=== PATIENT | female | born 1945 | race Hispanic/Latino ===

== ENCOUNTER 2018-07-25 08:19 | Emergency (ER) | payer MEDICARE ==
[~2018-07-25 08:19] MED LIST: ALEN70TA47 PO; AMLO1TAB14 PO; ATOR40TA71 PO; CARV12.511 PO; CHOL100053 PO; CLOP75TA32 PO; EZET10 PO; MULTIVITAMIN PO; OMEG300C3 PO; OMEP40CA37 PO; SOLI10TA PO; TRAM50TA4 PO; [UNRECOGNIZED DRUG - OTHER] PO
[2018-07-25] MEDS ORDERED: KETOROLAC TROMETHAMINE 60 MG/2 ML VIAL ONE (08:28)
[2018-07-25] MEDS ORDERED: CYCLOBENZAPRINE HCL 10 MG TABLET ONE (08:29)
[2018-07-25] MEDS ORDERED: MORPHINE SULFATE 8 MG/ML VIAL ONE (08:30)
[2018-07-25 09:32] LABS: APPEARANCE,URINE Cloudy (CLEAR); BILIRUBIN,URINE Negative (NEGATIVE); COLOR,URINE Yellow (YELLOW); GLUCOSE, URINE (UA) Negative (NEGATIVE); KETONES,URINE Negative (NEGATIVE); LEUKOCYTE ESTERASE ,URINE Trace (NEGATIVE); NITRATE,URINE Negative (NEGATIVE); OCCULT BLOOD,URINE Moderate (NEGATIVE); PROTEIN,URINE Negative (NEGATIVE); UROBILINOGEN,URINE 0.2 mg/dL (0.2-1.0)
[2018-07-25 10:24] LABS: BACTERIA,URINE Many /HPF (None Seen); RBC,URINE 0-1 /HPF (0-1); SQUAMOUS EPITHELIAL CELL,UR Rare /HPF (0-2); WBC,URINE 0-1 /HPF (0-1)
== END 2018-07-25 11:01 | disposition home or self-care (01) ==
LOC: EDH 08:19
DX: M54.5 Low back pain (principal); E78.5 Hyperlipidemia, unspecified; I10 Essential (primary) hypertension; G89.29 Other chronic pain
CPT/HCPCS: 72131; 81001; 96372 ×2; 99285; J1885; J2270

== ENCOUNTER → 2019-09-16 | Outpatient (CLI) | payer MEDICARE ==
[~2019-09-16] MED LIST changes: -ALEN70TA47 PO; -AMLO1TAB14 PO; +AMLO5TAB9 PO; -EZET10 PO; +EZET10TA13 PO; +LINA72CA PO; +NTP TP; +OMEP40CA13 PO; -OMEP40CA37 PO; +TELM80TA10 PO
== END | disposition home or self-care (01) ==
LOC: SHCH 09:44
PROVIDERS: ATTEND Internal Medicine Cardiovascular Disease
DX: I10 Essential (primary) hypertension (principal)
CPT/HCPCS: 93306

== ENCOUNTER → 2020-08-25 | Outpatient (CLI) | payer MEDICARE ==
[~2020-08-25] MED LIST changes: +AMLO-257 PO; -AMLO5TAB9 PO
== END | disposition home or self-care (01) ==
LOC: RAH 16:07
PROVIDERS: ATTEND Physical Medicine & Rehabilitation
DX: M47.819 Spondylosis without myelopathy or radiculopathy, site unspecified (principal); I70.0 Atherosclerosis of aorta; M85.80 Other specified disorders of bone density and structure, unspecified site
CPT/HCPCS: 72082

== ENCOUNTER → 2020-09-19 | Outpatient (CLI) | payer MEDICARE | END | disposition home or self-care (01) | LOC: RAH 12:35 | PROVIDERS: ATTEND Physical Medicine & Rehabilitation | DX: R27.9 Unspecified lack of coordination (principal) | CPT/HCPCS: 70551 ==

== ENCOUNTER → 2020-09-21 | Outpatient (CLI) | payer MEDICARE | END | disposition home or self-care (01) | LOC: RAH 13:11 | PROVIDERS: ATTEND Physical Medicine & Rehabilitation | DX: M48.061 Spinal stenosis, lumbar region without neurogenic claudication (principal); M51.36 Other intervertebral disc degeneration, lumbar region | CPT/HCPCS: 72131 ==

== ENCOUNTER → 2021-05-10 | Outpatient (CLI) | payer MEDICARE ==
[~2021-05-10] MED LIST changes: -OMEP40CA13 PO; +OMEP40CA21 PO
== END | disposition home or self-care (01) ==
LOC: RAH 12:57
PROVIDERS: ATTEND Physical Medicine & Rehabilitation
DX: M75.31 Calcific tendinitis of right shoulder (principal); M75.32 Calcific tendinitis of left shoulder
CPT/HCPCS: 73221

== ENCOUNTER → 2021-05-11 | Outpatient (CLI) | payer MEDICARE | END | disposition home or self-care (01) | LOC: RAH 13:02 | PROVIDERS: ATTEND Physical Medicine & Rehabilitation | DX: M75.102 Unspecified rotator cuff tear or rupture of left shoulder, not specified as traumatic (principal) | CPT/HCPCS: 73221 ==

== ENCOUNTER 2021-09-27 09:56 | Emergency (ER) | payer MEDICARE ==
[~2021-09-27] VITALS: Ht 154.9 cm; Wt 90.7 kg
[2021-09-27 10:46] LABS: BASOPHILS % (AUTO) 1.1 % (0.0-5.0); EOSINOPHILS % (AUTO) 12.3 % (0.0-8.0); HEMATOCRIT 39.5 % (36-48); LYMPHOCYTES % (AUTO) 33.1 % (21.0-51.0); MEAN CORPUSCULAR HEMOGLOBIN 32.1 pg (27.0-33.0); MEAN CORPUSCULAR HGB CONC 33.9 g/dL (32.0-36.0); MEAN CORPUSCULAR VOLUME 94.5 fL (79-99); MONOCYTES % (AUTO) 8.4 % (3.0-13.0); PLATELET COUNT (AUTO) 210 K/uL (130-400); RED BLOOD CELL COUNT(AUTO) 4.18 MIL/uL (4.00-5.50); RED CELL DISTRIBUTION WIDTH 12.8 % (11.0-15.5); WHITE BLOOD COUNT (AUTO) 7.4 K/uL (4.8-10.8)
[2021-09-27 10:47] LABS: APPEARANCE,URINE Cloudy (CLEAR); BILIRUBIN,URINE Negative (NEGATIVE); COLOR,URINE Yellow (YELLOW); GLUCOSE, URINE (UA) Negative (NEGATIVE); KETONES,URINE Negative (NEGATIVE); LEUKOCYTE ESTERASE ,URINE Small (NEGATIVE); NITRATE,URINE Negative (NEGATIVE); OCCULT BLOOD,URINE Moderate (NEGATIVE); PROTEIN,URINE Negative (NEGATIVE)
[2021-09-27 11:01] LABS: POTASSIUM 3.8 mmol/L (3.5-5.1)
[2021-09-27 11:12] LABS: ALBUMIN 3.9 g/dL (3.5-5.0); BILIRUBIN,TOTAL 0.8 mg/dL (0.2-1.0); TOTAL PROTEIN, SERUM 7.8 g/dL (6.0-8.3)
[2021-09-27] MEDS ORDERED: MECLIZINE HCL 25 MG TABLET PO ONE (11:30)
[2021-09-27] MEDS ORDERED: 0.9%NACL 1000ML 1,000 ML IV ONE (11:30)
[2021-09-27] MEDS ORDERED: KETOROLAC 15MG/ML VIAL (15MG/ML) IV ONE (11:30)
[2021-09-27 11:36] LABS: BACTERIA,URINE Many /HPF (None Seen); RBC,URINE 0-1 /HPF (0-1); SQUAMOUS EPITHELIAL CELL,UR Few /HPF (0-2)
[2021-09-27] MEDS ORDERED: METH4TAB3 PO (13:38)
[2021-09-27] MEDS ORDERED: MECL-226 PO (13:38)
[2021-09-27 14:02] VITALS: BP 125/64
== END 2021-09-27 14:04 | disposition home or self-care (01) ==
LOC: EDH 09:56
DX: M54.2 Cervicalgia (principal); R42 Dizziness and giddiness; R19.7 Diarrhea, unspecified; M19.90 Unspecified osteoarthritis, unspecified site; E78.00 Pure hypercholesterolemia, unspecified; I10 Essential (primary) hypertension; Z79.1 Long term (current) use of non-steroidal anti-inflammatories (NSAID); Z79.899 Other long term (current) drug therapy
CPT/HCPCS: 36415; 80053; 81001; 85025; 87077; 87088; 87186; 93005; 96361; 96374; 99284; J1885

== ENCOUNTER → 2022-09-12 | Outpatient (CLI) | payer MEDICARE ==
[~2022-09-12] MED LIST changes: +IOHEXOL 350 MG/ML 100ML INFUS..BTL IV ONE; +MECL-226 PO; +METH4TAB3 PO
== END | disposition home or self-care (01) ==
LOC: RAH 10:25
PROVIDERS: ATTEND Internal Medicine
DX: N28.1 Cyst of kidney, acquired (principal); R10.9 Unspecified abdominal pain; I25.10 Atherosclerotic heart disease of native coronary artery without angina pectoris
CPT/HCPCS: 74170; Q9967

== ENCOUNTER 2022-10-10 12:13 | Emergency (ER) | payer MEDICARE ==
[~2022-10-10 12:13] MED LIST changes: -IOHEXOL 350 MG/ML 100ML INFUS..BTL IV ONE
[2022-10-10 13:18] LABS: APPEARANCE,URINE CLOUDY (CLEAR); BILIRUBIN,URINE NEGATIVE (NEGATIVE); COLOR,URINE LIGHT-YELLOW (YELLOW); GLUCOSE, URINE (UA) NEGATIVE (NEGATIVE); KETONES,URINE NEGATIVE (NEGATIVE); LEUKOCYTE ESTERASE ,URINE NEGATIVE Leu/uL (NEGATIVE); NITRATE,URINE 2+ (NEGATIVE); OCCULT BLOOD,URINE SMALL (NEGATIVE); PROTEIN,URINE NEGATIVE (NEGATIVE); UROBILINOGEN,URINE 0.2 mg/dL (0.2-1.0)
[2022-10-10 13:27] LABS: BACTERIA,URINE RARE /HPF (None Seen); SQUAMOUS EPITHELIAL CELL,UR FEW /HPF (0-2)
[2022-10-10 14:40] VITALS: BP 165/74
[2022-10-10] MEDS ORDERED: TAMS-1 PO ×2 (15:29→16:10)
[2022-10-10] MEDS ORDERED: SULF1TAB42 PO ×2 (15:29→16:10)
== END 2022-10-10 15:30 | disposition home or self-care (01) ==
LOC: EDH 12:13
DX: N20.0 Calculus of kidney (principal); N39.0 Urinary tract infection, site not specified; Z79.01 Long term (current) use of anticoagulants; Z79.899 Other long term (current) drug therapy
CPT/HCPCS: 74176; 81001; 87077; 87088; 87186

== ENCOUNTER → 2023-04-24 | Outpatient (CLI) | payer MEDICARE ==
[~2023-04-24] MED LIST changes: +GADOTERATE MEGLUMINE 10 MMOL/20 ML VIAL IV ONE; +SULF1TAB42 PO; +TAMS-1 PO
== END | disposition home or self-care (01) ==
LOC: RAH 14:32
PROVIDERS: ATTEND Internal Medicine
DX: M47.814 Spondylosis without myelopathy or radiculopathy, thoracic region (principal); M54.6 Pain in thoracic spine
CPT/HCPCS: 72146; A9575

== ENCOUNTER → 2023-06-20 | Outpatient (CLI) | payer MEDICARE ==
[~2023-06-20] MED LIST changes: -GADOTERATE MEGLUMINE 10 MMOL/20 ML VIAL IV ONE
== END | disposition home or self-care (01) ==
LOC: RAH 15:13
PROVIDERS: ATTEND Internal Medicine
DX: M47.812 Spondylosis without myelopathy or radiculopathy, cervical region (principal); M47.817 Spondylosis without myelopathy or radiculopathy, lumbosacral region; M48.02 Spinal stenosis, cervical region; M43.17 Spondylolisthesis, lumbosacral region; M48.05 Spinal stenosis, thoracolumbar region; M48.08 Spinal stenosis, sacral and sacrococcygeal region; M54.2 Cervicalgia
CPT/HCPCS: 72114; 72141

== ENCOUNTER → 2023-06-27 | Outpatient (CLI) | payer MEDICARE ==
[~2023-06-27] MED LIST changes: -EZET10TA13 PO; +EZET10TA81 PO
== END | disposition home or self-care (01) ==
LOC: RAH 12:53
PROVIDERS: ATTEND Physical Medicine & Rehabilitation
DX: M48.061 Spinal stenosis, lumbar region without neurogenic claudication (principal); M51.36 Other intervertebral disc degeneration, lumbar region; N20.0 Calculus of kidney; M47.816 Spondylosis without myelopathy or radiculopathy, lumbar region
CPT/HCPCS: 72131

== ENCOUNTER → 2024-02-26 | Outpatient (CLI) | payer MEDICARE | END | disposition home or self-care (01) | LOC: RAH 13:44 | PROVIDERS: ATTEND Physical Medicine & Rehabilitation | DX: G31.89 Other specified degenerative diseases of nervous system (principal); R51.9 Headache, unspecified | CPT/HCPCS: 70450 ==

== ENCOUNTER 2024-06-06 10:55 | Inpatient (IN) | payer MEDICARE ==
[~2024-06-06] VITALS: Ht 154.9 cm; Wt 84.0 kg
[2024-06-06 11:52] LABS: BASOPHILS # (AUTO) 0.01 K/uL (0.00-0.20); BASOPHILS % (AUTO) 0.2 % (0.0-5.0); HEMATOCRIT 38.4 % (36-48); IMMATURE GRANULOCYTE ABSOLUTE 0.02 K/uL (0-1); LYMPHOCYTES # (AUTO) 0.7 K/uL (1.0-4.8); LYMPHOCYTES % (AUTO) 13.5 % (21.0-51.0); MEAN CORPUSCULAR HEMOGLOBIN 33.3 pg (27.0-33.0); MEAN CORPUSCULAR HGB CONC 34.4 g/dL (32.0-36.0); MONOCYTES # (AUTO) 0.6 K/uL (0.1-1.0); NEUTROPHILS # (AUTO) 3.8 K/uL (1.8-7.7); NEUTROPHILS % (AUTO) 74.9 % (40.0-77.0); PLATELET COUNT (AUTO) 140 K/uL (130-400); RED BLOOD CELL COUNT(AUTO) 3.96 MIL/uL (4.00-5.50); RED CELL DISTRIBUTION WIDTH 12.1 % (11.0-15.5); WHITE BLOOD COUNT (AUTO) 5.1 K/uL (4.8-10.8)
[2024-06-06 11:57] LABS: POTASSIUM 3.4 mmol/L (3.5-5.1)
[2024-06-06 12:11] LABS: SARS-CoV-2, RNA, NAAT POSITIVE SARS CoV-2 (NEGATIVE)
[2024-06-06 12:17] LABS: INFLUENZA TYPE A Negative For Type A (NEGATIVE); INFLUENZA TYPE B Negative For Type B (NEGATIVE)
[2024-06-06 14:35] VITALS: PULSE 85; RESP 18; O2SAT 97
[2024-06-06] MEDS: DEXTROSE 5 %-0.45 % NACL 1,000 ML IV SCH (14:43)
[2024-06-06] MEDS: acetaMINOPHEN 500 MG TABLET PO ONE (14:45)
[2024-06-06] MEDS ORDERED: METO-408 PO (15:07)
[2024-06-06] MEDS ORDERED: AEC81 PO (15:07)
[2024-06-06] MEDS ORDERED: PANT40TA54 PO (15:10)
[2024-06-06] MEDS ORDERED: GABA-534 PO (15:10)
[2024-06-06] MEDS ORDERED: CARB-38 PO (15:10)
[2024-06-06] MEDS ORDERED: SOLI10TA7 PO (15:10)
[2024-06-06 16:00] VITALS: BP 144/77; PULSE 75; RESP 14; TEMP 98.8; O2SAT 95
[2024-06-06] MEDS: IpraTROPium/alBUTERol SULFATE 3 ML SOLUTION IH SCH (18:08)
[2024-06-06] MEDS: SODIUM CHLORIDE 3% FOR INHALATION 4 ML/AMP VIAL.NEB IH ONE ×2 (18:09→23:23)
[2024-06-06 18:13] VITALS: PULSE 82; RESP 18; RESP 19; O2SAT 98
[2024-06-06 20:00] VITALS: BP 126/57; PULSE 77; RESP 19; TEMP 99.3
[2024-06-06 20:30] VITALS: O2SAT 98
[2024-06-06] MEDS: CARBIDOPA-LEVODOPA 25-100 TAB PO SCH (21:00)
[2024-06-06] MEDS: OXYBUTYNIN CHLORIDE 5 MG TABLET PO SCH (21:00)
[2024-06-06] MEDS: GABAPENTIN 300 MG CAPSULE PO SCH (21:26)
[2024-06-06] MEDS: EZETIMIBE 10 MG TAB PO SCH (21:26)
[2024-06-06] MEDS: cefTRIAXone 1G VIAL IVPB SCH (22:52)
[2024-06-06] MEDS: guaiFENesin-DM 200/20MG 10ML PO PRN (22:52)
[2024-06-06] MEDS ORDERED: ACET325C6 PO (23:22)
[2024-06-06 23:23] VITALS: PULSE 77; RESP 19
[2024-06-06] MEDS: acetaMINOPHEN 325 MG TAB PO PRN (23:29)
[2024-06-07] VITALS (14 sets, daily range): BP systolic 104–149; BP diastolic 40–85; PULSE 75–94; RESP 17–20; TEMP 97.8–101.9; O2SAT 95–96
[2024-06-07 05:13] LABS: BASOPHILS # (AUTO) 0.01 K/uL (0.00-0.20); BASOPHILS % (AUTO) 0.2 % (0.0-5.0); EOSINOPHILS # (AUTO) 0.01 K/uL (0.00-0.70); EOSINOPHILS % (AUTO) 0.2 % (0.0-8.0); HEMATOCRIT 35.9 % (36-48); IMMATURE GRANULOCYTE ABSOLUTE 0.02 K/uL (0-1); LYMPHOCYTES # (AUTO) 1.4 K/uL (1.0-4.8); LYMPHOCYTES % (AUTO) 31.9 % (21.0-51.0); MEAN CORPUSCULAR HEMOGLOBIN 33.3 pg (27.0-33.0); MEAN CORPUSCULAR HGB CONC 33.7 g/dL (32.0-36.0); MEAN CORPUSCULAR VOLUME 98.9 fL (79-99); MONOCYTES # (AUTO) 0.5 K/uL (0.1-1.0); MONOCYTES % (AUTO) 11.3 % (3.0-13.0); NEUTROPHILS # (AUTO) 2.5 K/uL (1.8-7.7); NEUTROPHILS % (AUTO) 55.9 % (40.0-77.0); PLATELET COUNT (AUTO) 122 K/uL (130-400); RED BLOOD CELL COUNT(AUTO) 3.63 MIL/uL (4.00-5.50); WHITE BLOOD COUNT (AUTO) 4.4 K/uL (4.8-10.8)
[2024-06-07 05:46] LABS: ALBUMIN 2.5 g/dL (3.5-5.0); BILIRUBIN,TOTAL 0.3 mg/dL (0.2-1.0); CREATININE 0.9 mg/dL (0.5-1.0); POTASSIUM 3.3 mmol/L (3.5-5.1); THYROID STIMULATING HORMONE 0.51 uIU/mL (0.36-3.74); TOTAL PROTEIN, SERUM 6.4 g/dL (6.0-8.3)
[2024-06-07] MEDS: SODIUM CHLORIDE 3% FOR INHALATION 4 ML/AMP VIAL.NEB IH ONE (06:00)
[2024-06-07] MEDS ORDERED: POTASSIUM CHLORIDE 20MEQ/100ML 100 ML IV PRN ×2 (07:00)
[2024-06-07] MEDS ORDERED: MAGNESIUM 2GM PREMIX 50ML 50 ML IV PRN (07:00)
[2024-06-07] MEDS ORDERED: POTASSIUM CHLORIDE 10% ELIXIR 20 MEQ/15 ML UDCUP PO PRN (07:00)
[2024-06-07] MEDS: ASPIRIN 81 MG EC TAB PO SCH (08:45)
[2024-06-07] MEDS: PANTOPRAZOLE 40 MG TAB DR PO SCH (08:45)
[2024-06-07] MEDS: LoSARTan 100 MG TABLET PO SCH (08:45)
[2024-06-07] MEDS: metOPROLol sucCINATE 25 MG TAB.SR.24H PO SCH (08:45)
[2024-06-07] MEDS: doCUSate SODIUM 100 MG CAP PO PRN (11:12)
[2024-06-07] MEDS: KCL 20 MEQ ERTAB PO PRN (11:16)
[2024-06-07] MEDS ORDERED: PHARMACY COMMUNICATION MISC SCH (11:30)
[2024-06-07] MEDS: CARBIDOPA-LEVODOPA 25-100 TAB PO SCH (13:43)
[2024-06-07] MEDS: mecliZINE HCL 12.5 MG TABLET PO PRN (15:34)
[2024-06-07] MEDS ORDERED: ONDANSETRON 4MG INJ IVP PRN (16:30)
[2024-06-08] VITALS (13 sets, daily range): BP systolic 139–156; BP diastolic 58–73; PULSE 75–97; RESP 18–20; TEMP 98.5–99.8; O2SAT 94–95
[2024-06-08 09:14] LABS: HEMATOCRIT 35.7 % (36-48); MEAN CORPUSCULAR HGB CONC 33.6 g/dL (32.0-36.0); MEAN CORPUSCULAR VOLUME 98.1 fL (79-99); RED BLOOD CELL COUNT(AUTO) 3.64 MIL/uL (4.00-5.50); RED CELL DISTRIBUTION WIDTH 12.1 % (11.0-15.5); WHITE BLOOD COUNT (AUTO) 4.9 K/uL (4.8-10.8)
[2024-06-08 09:25] LABS: CREATININE 0.8 mg/dL (0.5-1.0); POTASSIUM 3.3 mmol/L (3.5-5.1)
[2024-06-08 09:48] LABS: ALBUMIN 2.5 g/dL (3.5-5.0); BILIRUBIN,TOTAL 0.3 mg/dL (0.2-1.0); TOTAL PROTEIN, SERUM 6.6 g/dL (6.0-8.3)
[2024-06-08] MEDS ORDERED: CARBIDOPA-LEVODOPA 25-100 TAB PO SCH (15:30)
[2024-06-08] MEDS: CARBIDOPA-LEVODOPA 25-100 TAB PO ONE ×2 (15:32→20:51)
[2024-06-08 19:50] LABS: ALBUMIN 2.5 g/dL (3.5-5.0); BILIRUBIN,TOTAL 0.5 mg/dL (0.2-1.0); MAGNESIUM 1.4 mg/dL (1.80-2.40); POTASSIUM 3.9 mmol/L (3.5-5.1); TOTAL PROTEIN, SERUM 6.8 g/dL (6.0-8.3)
[2024-06-08] MEDS: LACTATED RINGERS 1000ML 1,000 ML IV SCH (20:00)
[2024-06-09] VITALS (13 sets, daily range): BP systolic 135–158; BP diastolic 53–79; PULSE 71–92; RESP 16–18; TEMP 98.1–98.9; O2SAT 95–96
[2024-06-09 04:46] LABS: BASOPHILS # (AUTO) 0.01 K/uL (0.00-0.20); BASOPHILS % (AUTO) 0.2 % (0.0-5.0); EOSINOPHILS # (AUTO) 0.05 K/uL (0.00-0.70); HEMATOCRIT 33.5 % (36-48); IMMATURE GRANULOCYTE ABSOLUTE 0.02 K/uL (0-1); LYMPHOCYTES # (AUTO) 1.7 K/uL (1.0-4.8); LYMPHOCYTES % (AUTO) 35.2 % (21.0-51.0); MEAN CORPUSCULAR HEMOGLOBIN 32.8 pg (27.0-33.0); MEAN CORPUSCULAR HGB CONC 33.4 g/dL (32.0-36.0); MEAN CORPUSCULAR VOLUME 98.2 fL (79-99); MONOCYTES # (AUTO) 0.5 K/uL (0.1-1.0); MONOCYTES % (AUTO) 11.1 % (3.0-13.0); NEUTROPHILS # (AUTO) 2.5 K/uL (1.8-7.7); NEUTROPHILS % (AUTO) 52.1 % (40.0-77.0); PLATELET COUNT (AUTO) 151 K/uL (130-400); RED BLOOD CELL COUNT(AUTO) 3.41 MIL/uL (4.00-5.50); RED CELL DISTRIBUTION WIDTH 12.1 % (11.0-15.5); WHITE BLOOD COUNT (AUTO) 4.8 K/uL (4.8-10.8)
[2024-06-09 05:03] LABS: ALBUMIN 2.3 g/dL (3.5-5.0); BILIRUBIN,TOTAL 0.3 mg/dL (0.2-1.0); CREATININE 0.9 mg/dL (0.5-1.0); POTASSIUM 3.6 mmol/L (3.5-5.1); TOTAL PROTEIN, SERUM 6.2 g/dL (6.0-8.3)
[2024-06-09] MEDS: CARBIDOPA-LEVODOPA 25-100 TAB PO SCH (09:53)
[2024-06-09] MEDS: TROLAMINE SALICYLATE CREAM 85 GM TUBE TP PRN (09:54)
[2024-06-09] MEDS: CLOTRIMAZOLE/BETAMETHASONE DIP 45 GM CREAM.GM. TP PRN (17:40)
[2024-06-10] VITALS (8 sets, daily range): BP systolic 142–168; BP diastolic 64–87; PULSE 69–95; RESP 16–19; TEMP 98.9–99.1; O2SAT 96–98
[2024-06-10] MEDS ORDERED: GUAIF10 PO (16:38)
[2024-06-10] MEDS ORDERED: [UNRECOGNIZED DRUG - CODE] TP (16:39)
[2024-06-10] MEDS ORDERED: CIPR250S6 PO (16:40)
== END 2024-06-10 18:15 | DRG 557 ==
LOC: EDH 10:55 → EDHIP 13:21 → 4AH 15:50
PROVIDERS: ADMIT Internal Medicine; ATTEND Internal Medicine
DX: M62.82 Rhabdomyolysis (principal); U07.1 COVID-19; I10 Essential (primary) hypertension; G20.A1 Parkinson's disease without dyskinesia, without mention of fluctuations; E11.9 Type 2 diabetes mellitus without complications; E78.00 Pure hypercholesterolemia, unspecified; R32 Unspecified urinary incontinence; E78.5 Hyperlipidemia, unspecified; E86.0 Dehydration; J44.9 Chronic obstructive pulmonary disease, unspecified; Z86.16 Personal history of COVID-19; Z90.710 Acquired absence of both cervix and uterus; Z79.899 Other long term (current) drug therapy
CPT/HCPCS: 36415; 70450; 71045; 80048; 80053; 82550; 83605; 83735; 84132; 84145; 84443; 84484; 85025; 85027; 87071; 87086; 87186; 87205; 87635; 87804; 93005; 93306; 94640; 94664; G0378; J0696; J3475

== ENCOUNTER → 2025-07-08 | Outpatient (CLI) | payer MEDICARE ==
[~2025-07-08] MED LIST changes: +ACET325C6 PO; +AEC81 PO; -AMLO-257 PO; -ATOR40TA71 PO; +CARB-38 PO; -CARV12.511 PO; -CHOL100053 PO; +CIPR250S6 PO; -CLOP75TA32 PO; +GABA-534 PO; +GUAI100L96 PO; -LINA72CA PO; -METH4TAB3 PO; +METO-408 PO; -MULTIVITAMIN PO; -NTP TP; -OMEG300C3 PO; -OMEP40CA21 PO; +PANT40TA54 PO; -SOLI10TA PO; +SOLI10TA7 PO; -SULF1TAB42 PO; -TAMS-1 PO; -TRAM50TA4 PO; +[UNRECOGNIZED DRUG - CODE] TP; -[UNRECOGNIZED DRUG - OTHER] PO
--- NOTE | 2025-07-08 15:47 | HMCIMG ---
CLINICAL INDICATION: Age-related osteoporosis without current pathological fracture COMPARISON: None available TECHNIQUE: Bone densitometry is performed of the lumbar spine and left hip. FINDINGS: Total BMD of lumbar spine is 1.059 g/cm2 with a T-score of 0.1 and Z-score is 2.9 . Total BMD of left hip is 0.835 g/cm2 with a T-score of -1.0 and Z-score is 1.2. FRAX SCORE: The 10 year fracture risk for a major osteoporotic fracture and hip fracture not reported due to treated for osteoporosis IMPRESSION: 1. Osteopenia of the left hip 2. Normal lumbar spine 3. I would recommend patient return for follow-up. In 13 months. World Health Organization criteria for BMD interpretation classify patients as Normal (T-score at or above -1.0), Osteopenic (T-score between -1.0 and -2.5), or Osteoporotic (T-score at or below -2.5). FRAX SCORE: A. All treatment decisions require clinical judgment and consideration of individual patient factors, including patient preferences, comorbidities, previous drug use, risk factors not captured in the FRAX model (e.g., frailty, falls, vitamin D deficiency, increased bone turnover, interval significant decline in bone density) and possible [id number]-[id number]-estimation of fracture risk by FRAX. B. In addition, the NOF Guide recommends that FDA-approved medical therapies be considered in postmenopausal women and men age greater than or equal to 50 years with a: i. Hip or vertebral (clinical or morphometric) fracture. ii. T-score of less than or equal to -2.5 at the spine or hip. iii. Ten-year fracture probability by FRAX of greater than or equal to 3% for hip fracture of greater than or equal to 20% for major osteoporotic fracture.
== END | disposition home or self-care (01) ==
LOC: RAH 13:02
PROVIDERS: ATTEND Internal Medicine
DX: M85.852 Other specified disorders of bone density and structure, left thigh (principal); M81.0 Age-related osteoporosis without current pathological fracture
CPT/HCPCS: 77080